=== PATIENT | female | born 1960 | race Caucasian/White ===

== ENCOUNTER 2018-06-30 18:36 | Emergency (ER) | payer BC ==
[~2018-06-30] VITALS: Ht 167.6 cm; Wt 90.7 kg
[2018-06-30 18:58] VITALS: BP 178/93
== END 2018-06-30 23:30 | disposition home or self-care (01) ==
LOC: ER 18:37
DX: M79.661 Pain in right lower leg (principal)
CPT/HCPCS: 93971; 99284

== ENCOUNTER 2024-04-16 07:43 | Day surgery (SDC) | payer BC, OTHER ==
[~2024-04-16] VITALS: Ht 167.6 cm; Wt 74.0 kg
[~2024-04-16 07:43] MED LIST: DUTA0.5C36 PO
[2024-04-16 08:00] VITALS: BP 164/83; PULSE 70; RESP 18; TEMP 97
[2024-04-16] MEDS ORDERED: fentaNYL/PF 50MCG/1 ML 2ML syringe ONE (09:16)
[2024-04-16] MEDS ORDERED: midazolam 1 mg/ML 2ml injection ONE (09:16)
[2024-04-16] MEDS ORDERED: propofol inj 20 ML IV ONE (09:16)
[2024-04-16] MEDS ORDERED: simethicone 40mg/0.6ml oral drops 30ml ONE (09:29)
[2024-04-16 10:10] VITALS: BP 131/78; PULSE 71; RESP 16; O2SAT 98
[2024-04-16 10:20] VITALS: BP 131/73; PULSE 57; RESP 16; O2SAT 98
[2024-04-16 10:30] VITALS: BP 138/66; PULSE 55; RESP 16; O2SAT 97
[2024-04-16 10:40] VITALS: BP 135/66; PULSE 53; RESP 16; O2SAT 98
== END 2024-04-16 10:48 | disposition home or self-care (01) ==
LOC: PAS 07:43
PROVIDERS: ATTEND Internal Medicine Gastroenterology
DX: Z12.11 Encounter for screening for malignant neoplasm of colon (principal); K57.30 Diverticulosis of large intestine without perforation or abscess without bleeding; K21.00 Gastro-esophageal reflux disease with esophagitis, without bleeding; K29.70 Gastritis, unspecified, without bleeding; R12 Heartburn; Z79.899 Other long term (current) drug therapy
CPT/HCPCS: 43239; 45378; J2250; J2704; J3010; J7030; Z7512; A4620